=== PATIENT | male | born 1990 | race African-American/Black ===

== ENCOUNTER 2021-01-23 01:05 | Emergency (ER) | payer MEDICAID ==
[~2021-01-23] VITALS: Ht 170.2 cm; Wt 69.0 kg
[2021-01-23] MEDS ORDERED: IBUPROFEN 400MG TABLET PO ONE (03:15)
[2021-01-23] MEDS ORDERED: NEOMYCIN/BACITRACIN/POLYMYXIN OINT 14GM TOP ONE (03:15)
[2021-01-23 04:35] VITALS: BP 129/86
== END 2021-01-23 04:48 | disposition home or self-care (01) ==
LOC: ER 01:05
DX: S90.822A Blister (nonthermal), left foot, initial encounter (principal); S91.302A Unspecified open wound, left foot, initial encounter; Y93.01 Activity, walking, marching and hiking; Y92.480 Sidewalk as the place of occurrence of the external cause; F12.90 Cannabis use, unspecified, uncomplicated; F15.10 Other stimulant abuse, uncomplicated; J45.909 Unspecified asthma, uncomplicated; Z59.0 Homelessness
CPT/HCPCS: 99283